=== PATIENT | male | born 1955 ===

== ENCOUNTER 2017-04-07 08:20 | Emergency (ER) | payer MEDICARE, OTHER ==
[2017-04-07 08:21] VITALS: BMI 22.2
[2017-04-07 08:24] VITALS: RESP 16; TEMP 97.9; O2SAT 98
--- NOTE | 2017-04-07 09:57 | C.PDOC ---
History Of Present Illness 61 y/o M c PMHx CAD, CKD p/w subjective fever, body aches, cough, R shoulder pain x 1 week. Patient states he went to [facility] twice in past week and had unremarkable work up and was started on Tamiflu despite negative influenza swab. He states he has not called his primary doctor Dr. Alonso for follow up. 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 He complains of the same symptoms today, noting that his R shoulder/neck pain is the aspect of his illness that is bothering him most and the acetaminophen he was instructed to take is not helping. I called [facility] ED and a patient with a similar name but different age who was in the ED on the and with the same complaints was found in the system. He had 2 negative CXRs, a negative EKG, a negative influenza swab, no leukocytosis , negative UA, normal electrolytes, creatinine 3.1 (baseline), blood culture with no growth after 3 days, and a troponin of 0.04. Time Seen by Provider: 04/07/17 09:20 Chief Complaint (Nursing): Flu-like Symptoms Past Medical History Vital Signs: Last Vital Signs Temp 97.9 F 04/07/17 08:23 Pulse 79 04/07/17 08:23 Resp 16 04/07/17 08:23 BP 122/66 04/07/17 08:23 Pulse Ox 98 04/07/17 09:59 - Medical History PMH: Diabetes, HTN, Hypercholesterolemia Surgical History: Coronary Stent (8) Denies: Pacemaker Family History: States: CAD - Social History Hx Alcohol Use: No Hx Substance Use: No - Immunization History Hx Tetanus Toxoid Vaccination: No Hx Influenza Vaccination: No Hx Pneumococcal Vaccination: No Review Of Systems Except As Marked, All Systems Reviewed And Found Negative. Respiratory: Negative for: Shortness of Breath Gastrointestinal: Negative for: Abdominal Pain Physical Exam - Physical Exam Additional Physical Exam Comments: Gen: NAD Head: NC/AT Eyes: No icterus ENT: MMM Neck: Supple, no rigidity Chest: No tenderness CV: Regular rate Lungs: No accessory muscle use Abd: Soft, NT Extre: No swelling, FROM x 4 and of R shoulder. No tenderness of R shoulder. Neuro: Alert, no focal deficit ED Course And Treatment O2 Sat by Pulse Oximetry: 98 Medical Decision Making Medical Decision Making: Patient undergoing treatment currently for influenza-like illness with unremarkable work up twice and requesting pain relief for his R shoulder. Will trial on Flexeril as NSAIDs not appropriate due to CKD. Will check another troponin to trend from 0.04 at [facility]. Otherwise, patient states he can follow up with Dr. Alonso as early as today. Troponin decreased from previous. Disposition - Disposition Referrals: Dalia Alonso MD [Staff Provider] - Disposition: HOME/ ROUTINE Disposition Time: 11:04 Condition: STABLE Prescriptions: Cyclobenzaprine [Cyclobenzaprine HCl] 10 mg PO Q8H #12 tab Instructions: Shoulder Pain (ED) Forms: [facility] ([place]oc[place]) - Clinical Impression Clinical Impression: Shoulder pain
[2017-04-07 12:12] VITALS: BP 143/88; PULSE 68
== END 2017-04-07 12:32 | disposition home or self-care (01) ==
LOC: C.ER 08:20
DX: M25.511 Pain in right shoulder (principal); I10 Essential (primary) hypertension